=== PATIENT | female | born 1985 | race Caucasian/White ===

== ENCOUNTER 2018-07-02 22:01 | Emergency (ER) | payer BC ==
[~2018-07-02] VITALS: Ht 162.6 cm; Wt 64.2 kg
[2018-07-02 22:05] VITALS: Ht 162.6 cm; Wt 64.2 kg
[2018-07-02] MEDS ORDERED: LIDOCAINE/MYLANTA 40 ML BTL PO ONE (23:00)
[2018-07-02] MEDS ORDERED: MAG355OR14 PO (23:37)
[2018-07-02 23:55] VITALS: BP 122/71; PULSE 62; RESP 16
--- NOTE | 2018-07-03 00:33 | ERD ---
ER Documentation Chief Complaint Chief Complaint C/O ST, ON AND OFF COUGH W/ SOB AND AP S/P SWALLOWING CHICKEN BONE AT 4PM HPI Patient is a 33-year-old female with no medical problems who presents after swallowing a chicken bone. She said that she was at [employer] and swallowed a chicken bone by accident. She felt like it went down but she was having some shortness of breath that might be from anxiety. She had some abdominal pain and felt like her abdomen was swollen. She is speaking in full sentences without respiratory distress. She denies trouble breathing. Upon review of old medical records this is the patient's first visit to the emergency department. She does have a primary doctor. ROS All systems reviewed and are negative except as per history of present illness. Medications Home Meds Active Scripts Mag Hydrox/Al Hydrox/Simeth (Maalox Advanced Suspension) 355 Ml Oral.susp, 355 ML PO BID, #1 Prov:MARY GONZALEZ MD 07/02/18 Allergies Allergies: Coded Allergies: No Known Allergy (Unverified , 07/02/18) PMhx/Soc Medical and Surgical Hx: pt denies Medical Hx, pt denies Surgical Hx History of Surgery: No Anesthesia Reaction: No Hx Neurological Disorder: No Hx Respiratory Disorders: No Hx Cardiac Disorders: No Hx Psychiatric Problems: No Hx Miscellaneous Medical Probl: No Hx Alcohol Use: Yes (OCASSIONALLY) Hx Substance Use: Yes Hx Tobacco Use: Yes Smoking Status: Former smoker FmHx Family History: No diabetes Physical Exam Vitals Vital Signs Date Temp Pulse Resp B/P (MAP) Pulse Ox O2 O2 Flow FiO2 Time Delivery Rate 07/02/18 99.0 62 16 122/71 99 Room Air 23:55 (88) 07/02/18 98.5 78 19 149/80 99 22:05 (103) Physical Exam Const: No acute distress Head: Atraumatic Eyes: Normal Conjunctiva ENT: Normal External Ears, Nose and Mouth. Neck: Full range of motion. No meningismus. Resp: Clear to auscultation bilaterally Cardio: Regular rate and rhythm, no murmurs Abd: Soft, non tender, non distended. Normal bowel sounds Skin: No petechiae or rashes Back: No midline or flank tenderness Ext: No cyanosis, or edema Neur: Awake and alert Psych: Normal Mood and Affect Results 24 hrs Current Medications Medications Dose Sig/Josy Start Time Status Last (Trade) Ordered Route PRN Stop Time Admin Dose Reason Admin 40 ml ONCE ONCE 07/02/18 DC 07/02/18 Miscellaneous PO 23:00 07/02/18 22:42 Medication 23:01 (Gi Cocktail (2)) Procedures/MDM X-ray Soft Tissue Neck 2V Interpreted by me: Bones: No fracture Air spaces: Normal Foreign body: None Chest X-ray 1V Interpreted by me: Soft Tissue: No acute abnormalities Bones: No acute abnormalities Mediastinum/Cardiac Silhouette/Lungs: No acute abnormalities Patient is a 33-year-old female who presents after swallowing a chicken bone. X-ray of the neck and chest showed no sign of foreign body. I believe she like ly has a scratch of her esophagus which is causing her symptoms of feeling like there is something still there. She was given a GI cocktail. She will need to follow-up with her primary doctor and may require GI consultation if her symptoms persist. I doubt ruptured esophagus. The patient will be discharged but can return for any worsening symptoms. Departure Diagnosis: Primary Impression: Swallowed foreign body Encounter type: initial encounter Qualified Codes: T18.9XXA - Foreign body of alimentary tract, part unspecified, initial encounter Condition: Fair Patient Instructions: Swallowed Foreign Body (Adult) Referrals: Your doctor Additional Instructions: Call your primary care doctor TOMORROW for an appointment during the next 2-3 days.See the doctor sooner or return here if your condition worsens before your appointment time. MARY GONZALEZ MD July 03, 2018 00:33
== END 2018-07-03 00:12 | disposition home or self-care (01) ==
LOC: E/R 22:01
DX: T18.9XXA Foreign body of alimentary tract, part unspecified, initial encounter (principal); R05 Cough; X58.XXXA Exposure to other specified factors, initial encounter; Y92.9 Unspecified place or not applicable; Z87.891 Personal history of nicotine dependence
CPT/HCPCS: 70360; 71045; 99284; Z7610